=== PATIENT | male | born 1985 | race Caucasian/White ===

== ENCOUNTER 2021-02-15 18:40 | Emergency (ER) | payer OTHER ==
[~2021-02-15] VITALS: Ht 177.8 cm; Wt 96.4 kg
[2021-02-15 18:51] VITALS: BP 135/83
[2021-02-15] MEDS ORDERED: FLUORESCEIN OPHTHALMIC 1 MG STRIP ONE (21:13)
[2021-02-15] MEDS ORDERED: PROPARACAINE OPHTH 0.5%, 15ML ONE (21:13)
[2021-02-15] MEDS ORDERED: CEFTRIAXONE 1,000 MG IM ONE (22:30)
[2021-02-15] MEDS ORDERED: CEFTRIAXONE 1,000 MG ONE (22:43)
[2021-02-15] MEDS ORDERED: LIDOCAINE-MPF 1%, 5ML ONE (22:43)
--- NOTE | 2021-02-15 22:52 | NUR ---
pt agrees to POC, IM ABX given
== END 2021-02-15 22:59 | disposition home or self-care (01) ==
LOC: ED 22:19
DX: H10.023 Other mucopurulent conjunctivitis, bilateral (principal); I10 Essential (primary) hypertension; E78.5 Hyperlipidemia, unspecified; J45.909 Unspecified asthma, uncomplicated; F17.210 Nicotine dependence, cigarettes, uncomplicated
CPT/HCPCS: 96372; 99283; J0696